=== PATIENT | male | born 1980 | race Caucasian/White ===

== ENCOUNTER 2018-01-06 14:28 | Emergency (ER) | payer MEDICAID ==
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
[2018-01-06] MEDS ORDERED: HYDROmorphONE/DILAUDID 1 MG/ML INJ ONE (15:35)
[2018-01-06] MEDS ORDERED: HYDROmorphONE/DILAUDID 1 MG/ML INJ IVP ONE (15:37)
[2018-01-06 15:43] VITALS: TEMP 98.4
[2018-01-06 16:23] VITALS: RESP 18
[2018-01-06 18:51] VITALS: BP 135/85; PULSE 83; O2SAT 96
== END 2018-01-06 18:51 | disposition home or self-care (01) ==
DX: S32.040A Wedge compression fracture of fourth lumbar vertebra, initial encounter for closed fracture (principal); Z87.891 Personal history of nicotine dependence; V89.2XXA Person injured in unspecified motor-vehicle accident, traffic, initial encounter; Y92.410 Unspecified street and highway as the place of occurrence of the external cause
CPT/HCPCS: 96374; J1170